=== PATIENT | female | born 1975 | race Two or more races ===

== ENCOUNTER 2016-09-04 20:11 | Emergency (ER) | payer MEDICAID ==
[~2016-09-04] VITALS: Ht 160 cm; Wt 98.9 kg
[~2016-09-04 20:11] MED LIST: LISI-283; METH5TAB4 PO; TRAM50TA2
[2016-09-04 20:17] VITALS: BP 139/91
[2016-09-04] MEDS ORDERED: ONDANSETRON ODT 4 MG TAB PO ONE (21:30)
[2016-09-04] MEDS ORDERED: traMADol HCL 50 MG TAB PO ONE (21:30)
== END 2016-09-05 00:35 | disposition home or self-care (01) ==
LOC: ER 20:17
DX: G43.909 Migraine, unspecified, not intractable, without status migrainosus (principal); I10 Essential (primary) hypertension; H53.149 Visual discomfort, unspecified
CPT/HCPCS: 70450; 99284; Q0162

== ENCOUNTER 2018-01-29 05:09 | Emergency (ER) | payer MEDICAID ==
[~2018-01-29] VITALS: Ht 160 cm; Wt 84.8 kg
[2018-01-29 05:20] VITALS: BP 158/90
[2018-01-29] MEDS ORDERED: SUMAtriptan SUCCINATE 6 MG/0.5 ML VL SC ONE (06:30)
[2018-01-29] MEDS ORDERED: ONDANSETRON ODT 4 MG TAB PO ONE (07:30)
== END 2018-01-29 08:14 | disposition home or self-care (01) ==
LOC: ER 05:09
DX: G43.909 Migraine, unspecified, not intractable, without status migrainosus (principal); I10 Essential (primary) hypertension; R11.10 Vomiting, unspecified
CPT/HCPCS: 96372; 99283; J3030; Q0162

== ENCOUNTER 2018-04-10 03:14 | Emergency (ER) | payer MEDICAID ==
[~2018-04-10] VITALS: Ht 160 cm; Wt 86.6 kg
[2018-04-10 03:25] VITALS: BP 129/74
[2018-04-10] MEDS ORDERED: KETOROLAC TROMETH 60MG/2ML VIAL IM ONE (04:30)
[2018-04-10] MEDS ORDERED: ONDANSETRON HCL 4 MG/2 ML VIAL IM ONE (04:45)
== END 2018-04-10 05:33 | disposition home or self-care (01) ==
LOC: ER 03:16
DX: G43.909 Migraine, unspecified, not intractable, without status migrainosus (principal); I10 Essential (primary) hypertension
CPT/HCPCS: 81025; 96372; 99283; J1885; J2405

== ENCOUNTER 2019-07-26 12:54 | Emergency (ER) | payer MEDICAID ==
[~2019-07-26] VITALS: Ht 160 cm; Wt 94.8 kg
[2019-07-26] MEDS ORDERED: cloNIDine HCL 0.1 MG TAB PO ONE (13:00)
[2019-07-26 13:26] LABS: Urine Bacteria NONE SEEN /hpf (None Seen); Urine Blood Negative /uL (Negative); Urine Specific Gravity 1.006 (1.001-1.035); Urine WBC 2 /hpf (0 - 5)
[2019-07-26 13:44] LABS: Basophils # (auto) 0 10 ^3/uL (0-0.2); Basophils % (auto) 0.4 % (0.0-2.0); Eosinophils # (auto) 0.1 10 ^3/uL (0-0.8); Eosinophils % (auto) 1.1 % (0.0-7.0); Hematocrit 44.1 % (36.0-46.0); Hemoglobin 14.8 g/dL (12.2-16.2); Lymphocytes # (auto) 1.9 10 ^3/uL (0.4-5.4); Lymphocytes % (auto) 18.7 % (10.0-50.0); Mean Corpuscular Hemoglobin 31.6 pg (28.0-32.0); Mean Corpuscular Hgb Conc. 33.5 g/dL (32.0-36.0); Mean Corpuscular Volume 94.5 fL (80.0-100.0); Monocytes # (auto) 0.6 10 ^3/uL (0-1.3); Neutrophils # (auto) 7.3 10 ^3/uL (1.6-8.6); Neutrophils % (auto) 73.8 % (37.0-80.0); Platelet Count (auto) 338 10^3/uL (140-450); Red Blood Cells 4.67 10^6/uL (4.0-5.20); Red Cell Distribution Width 13.4 % (11.8-14.3)
[2019-07-26 14:06] LABS: Albumin 3.5 g/dL (3.4-5.0); Anion Gap 5 (5-15); BUN/Creatinine Ratio 11.1; Blood Urea Nitrogen 9 mg/dL (7-18); Calcium 8.8 mg/dL (8.5-10.1); Carbon Dioxide 26 mmol/L (21-32); Chloride 107 mmol/L (98-107); GFR African American 99 mL/min; GFR Non-African American 82 mL/min; Glucose 127 mg/dL (74-106); Potassium 3.7 mmol/L (3.5-5.1); Sodium 138 mmol/L (136-145)
[2019-07-26 14:11] LABS: Alanine Aminotransferase 20 U/L (13-56); Alkaline Phosphatase 93 U/L (45-117); Aspartate Aminotransferase 15 U/L (15-37); Bilirubin, Total 0.2 mg/dL (0.2-1.0); Total Protein 7.9 g/dL (6.4-8.2)
[2019-07-26] MEDS ORDERED: IOHEXOL 350 MG/ML 100ML IJ ONE (15:18)
[2019-07-26 16:46] VITALS: BP 130/89
== END 2019-07-26 16:59 | disposition home or self-care (01) ==
LOC: ER 12:54
DX: I10 Essential (primary) hypertension (principal); R79.1 Abnormal coagulation profile; J40 Bronchitis, not specified as acute or chronic
CPT/HCPCS: 36415; 71046; 71275; 80053; 81001; 81025; 84443; 84484; 85025; 85379; 93005; 99285; Q9967

== ENCOUNTER 2020-11-16 11:07 | Emergency (ER) | payer MEDICAID ==
[~2020-11-16] VITALS: Ht 160 cm; Wt 77.1 kg
[2020-11-16] MEDS ORDERED: CHOLECALCIFEROL (VITD3) 2,000 UNIT CAP/TAB PO ONE (11:30)
[2020-11-16] MEDS ORDERED: methylPREDNISolone SOD SUCC 125 MG/2 ML VL IV ONE (11:30)
[2020-11-16] MEDS ORDERED: ZINC SULFATE 220mg CAP or TAB PO ONE (11:30)
[2020-11-16] MEDS ORDERED: ASCORBIC ACID 500 MG TAB PO ONE (11:30)
[2020-11-16 12:12] LABS: Basophils # (auto) 0 10 ^3/uL (0-0.2); Basophils % (auto) 0.3 % (0.0-2.0); Eosinophils # (auto) 0 10 ^3/uL (0-0.8); Eosinophils % (auto) 0.3 % (0.0-7.0); Hematocrit 44.9 % (36.0-46.0); Hemoglobin 15.6 g/dL (12.2-16.2); Lymphocytes # (auto) 1.4 10 ^3/uL (0.4-5.4); Lymphocytes % (auto) 19.2 % (10.0-50.0); Mean Corpuscular Hgb Conc. 34.8 g/dL (32.0-36.0); Monocytes # (auto) 0.4 10 ^3/uL (0-1.3); Monocytes % (auto) 5.4 % (0.0-12.0); Neutrophils # (auto) 5.6 10 ^3/uL (1.6-8.6); Neutrophils % (auto) 74.8 % (37.0-80.0); Nucleated Red Blood Cells % 0.1 %; Red Blood Cells 4.88 10^6/uL (4.0-5.20); Red Cell Distribution Width 13.4 % (11.8-14.3); White Blood Cell 7.5 10^3/uL (4.4-10.8)
[2020-11-16 12:41] LABS: Lactic Acid w/Reflex 2.2 mmol/L (0.4-2.0)
[2020-11-16 12:42] LABS: Chloride 105 mmol/L (98-107); Potassium 3.5 mmol/L (3.5-5.1); Sodium 137 mmol/L (136-145)
[2020-11-16 12:50] LABS: Alanine Aminotransferase 41 U/L (13-56); Albumin 3.4 g/dL (3.4-5.0); Alkaline Phosphatase 131 U/L (45-117); Anion Gap 7 (5-15); Aspartate Aminotransferase 39 U/L (15-37); Bilirubin, Total 0.4 mg/dL (0.2-1.0); Blood Urea Nitrogen 10 mg/dL (7-18); Carbon Dioxide 25 mmol/L (21-32); GFR African American 96 mL/min; GFR Non-African American 79 mL/min; Glucose 90 mg/dL (74-106); Total Protein 8.3 g/dL (6.4-8.2)
[2020-11-16 14:00] VITALS: BP 152/90
== END 2020-11-16 14:54 | disposition home or self-care (01) ==
LOC: ER 11:07
DX: R07.89 Other chest pain (principal); R06.02 Shortness of breath; I10 Essential (primary) hypertension; Z20.822 Contact with and (suspected) exposure to COVID-19; Z98.51 Tubal ligation status
CPT/HCPCS: 36415; 71045; 80053; 82728; 83605; 83880; 84484; 85025; 85379; 86141; 87040; 87426; 93005; 96374; 99285; J2930

== ENCOUNTER 2022-08-03 12:24 | Emergency (ER) | payer MEDICAID ==
[~2022-08-03] VITALS: Ht 160 cm; Wt 100.6 kg
[2022-08-03 12:35] VITALS: BP 163/99
[2022-08-03 13:20] LABS: Basophils # (auto) 0 10 ^3/uL (0-0.2); Basophils % (auto) 0.5 % (0.0-2.0); Eosinophils # (auto) 0.1 10 ^3/uL (0-0.8); Eosinophils % (auto) 1.4 % (0.0-7.0); Hematocrit 40.8 % (36.0-46.0); Hemoglobin 13.8 g/dL (12.2-16.2); Lymphocytes # (auto) 2.3 10 ^3/uL (0.4-5.4); Lymphocytes % (auto) 32.8 % (10.0-50.0); Mean Corpuscular Hemoglobin 31.2 pg (28.0-32.0); Mean Corpuscular Hgb Conc. 33.8 g/dL (32.0-36.0); Mean Corpuscular Volume 92.2 fL (80.0-100.0); Monocytes # (auto) 0.5 10 ^3/uL (0-1.3); Monocytes % (auto) 6.8 % (0.0-12.0); Neutrophils # (auto) 4.2 10 ^3/uL (1.6-8.6); Neutrophils % (auto) 58.5 % (37.0-80.0); Nucleated Red Blood Cells % 0.1 %; Red Blood Cells 4.42 10^6/uL (4.0-5.20); Red Cell Distribution Width 13.7 % (11.8-14.3); White Blood Cell 7.1 10^3/uL (4.4-10.8)
[2022-08-03 13:33] LABS: Potassium 4.2 mmol/L (3.5-5.1)
[2022-08-03 13:35] LABS: INR 0.95 (0.9-1.15); Partial Thromboplastin Time 28.1 sec (24.6-33.4)
[2022-08-03 13:40] LABS: Albumin 4.1 g/dL (3.4-5.0); BUN/Creatinine Ratio 16.2 (10.0-20.0); Bilirubin, Total 0.4 mg/dL (0.2-1.0); Magnesium 2.2 mg/dL (1.6-2.6); Total Protein 7.4 g/dL (6.4-8.2)
[2022-08-03 13:53] LABS: Beta HCG, Quantitative < 1 mlU/mL (1-3)
[2022-08-03] MEDS: ASPirin 325 MG TAB PO ONE ×2 (14:00→14:26)
[2022-08-03 14:06] LABS: Urine Bacteria FEW /hpf (None Seen); Urine Blood Negative /uL (Negative); Urine Specific Gravity 1.009 (1.001-1.035); Urine WBC 3 /hpf (0 - 5)
[2022-08-03 14:27] LABS: Alcohol, Urine < 3.0 mg/dL (0-10); Amphetamine Screen, Urine NEGATIVE (NEGATIVE); Barbiturate Scree,Urine NEGATIVE (NEGATIVE); Benzodiazephine Screen, Urine NEGATIVE (NEGATIVE); Cannabinoid Screen, Urine NEGATIVE (NEGATIVE); Cocaine Screen, Urine NEGATIVE (NEGATIVE)
[2022-08-03 14:29] LABS: Opiate Scree,Urine NEGATIVE (NEGATIVE); Phencyclidine Screen, Urine NEGATIVE (NEGATIVE)
[2022-08-03] MEDS ORDERED: ACET-6 PO (15:26)
== END 2022-08-03 16:31 | disposition home or self-care (01) ==
LOC: ER 12:24
DX: R07.89 Other chest pain (principal); I10 Essential (primary) hypertension; R10.2 Pelvic and perineal pain; Z98.51 Tubal ligation status; Z32.02 Encounter for pregnancy test, result negative; Z79.899 Other long term (current) drug therapy
CPT/HCPCS: 36415; 71045; 80053; 80307; 81001; 81025; 83735; 83880; 84443; 84484; 84702; 85025; 85379; 85610; 85730; 93005